=== PATIENT | male | born 1990 | race Caucasian/White ===

== ENCOUNTER 2017-04-28 12:34 | Emergency (ER) | payer OTHER ==
[~2017-04-28] VITALS: Ht 177.8 cm; Wt 85.0 kg
[2017-04-28 12:38] VITALS: Ht 177.8 cm; Wt 85.0 kg
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
[2017-04-28] MEDS ORDERED: LORA-441 PO (14:04)
[2017-04-28] MEDS ORDERED: BACL10TA PO (14:04)
== END 2017-04-28 14:17 | disposition home or self-care (01) ==
LOC: FTE 12:34
DX: S09.90XA Unspecified injury of head, initial encounter (principal); F17.210 Nicotine dependence, cigarettes, uncomplicated; V49.40XA Driver injured in collision with unspecified motor vehicles in traffic accident, initial encounter
CPT/HCPCS: 99284